=== PATIENT | female | born 1995 | race African-American/Black ===

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

== ENCOUNTER 2018-03-19 13:27 | Emergency (ER) | payer OTHER, MEDICAID ==
[~2018-03-19 13:27] MED LIST changes: +BENZ100 PO; +MOME17I EACH NARE
[2018-03-19 13:33] VITALS: BP 127/71; PULSE 91; RESP 20; TEMP 98.6; O2SAT 99
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
[2018-03-19] MEDS ORDERED: CYCL10TA PO (15:20)
[2018-03-19] MEDS ORDERED: NAPR375T4 PO (15:20)
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
[2018-03-19 16:02] LABS: BILIRUBIN, URINE NEG (NEG); BLOOD, URINE NEG (NEG); GLUCOSE,URINE NEG (NEG); KETONE, URINE NEG (NEG); MUCUS URINE FEW /lpf (OCC); NITRITE,URINE NEG (NEG); PH, URINE 5.5 (5.0-8.5); SQUAMOUS EPITHELIAL CELL URINE 2 /hpf (0-5); URINE COLOR YELLOW (YELLW/STRAW); URINE LEUKOCYTE ESTERASE NEG (NEG)
== END 2018-03-19 16:36 | disposition home or self-care (01) ==
LOC: NEPD 13:27
DX: S39.012A Strain of muscle, fascia and tendon of lower back, initial encounter (principal); F12.90 Cannabis use, unspecified, uncomplicated; V49.50XA Passenger injured in collision with unspecified motor vehicles in traffic accident, initial encounter
CPT/HCPCS: 72100; 80307; 81001; 84703; 99284